=== PATIENT | female | born 1960 | race Caucasian/White ===

== ENCOUNTER → 2016-06-16 | Outpatient (CLI) | payer BC | LOC: MAMO 15:20 | DX: Z12.31 Encounter for screening mammogram for malignant neoplasm of breast (principal) | CPT/HCPCS: G0202 ==

== ENCOUNTER → 2021-04-25 | Outpatient (CLI) | payer BC ==
[~2021-04-25] MED LIST: BETAPACE80 MG PO; CORAL CALCIUM1 GM PO; NAPROSYN500 MG PO; POTASSIUM99 MG PO; PRAVACHOL40 MG PO; QUINAPRIL-HCTZ1 EAC1 PO; VITAMIN D250000 UNIT PO; XYZAL5 MG PO
== END ==
LOC: MAMO 03-29 13:00
DX: Z12.31 Encounter for screening mammogram for malignant neoplasm of breast (principal)
CPT/HCPCS: 77063; 77067

== ENCOUNTER → 2021-12-11 | Outpatient (CLI) | payer BC | LOC: HEART 5 08:41 | DX: R00.2 Palpitations (principal); I47.1 Supraventricular tachycardia ==